=== PATIENT | male | born 1965 | race Caucasian/White ===

== ENCOUNTER → 2019-06-09 16:02 | Outpatient (CLI) | payer BC, SELFPAY ==
--- NOTE | 2019-06-09 16:15 | MRI_ITS ---
STUDY: MRI LUMBAR SPINE WITHOUT CONTRAST REASON FOR EXAM: Male, 53 years old. Bilateral radiculopathy greater on the left TECHNIQUE: Standardized fat and water weighted pulse sequences were obtained in the sagittal and axial planes. COMPARISON: None FINDINGS: T12-L1: Normal endplates. Normal disc height, hydration and tiny central disc protrusion.. Normal bilateral facet joints. Normal central canal and bilateral lateral recesses. Normal bilateral intervertebral neural foramina. Mild lumbar kyphosis. There is no substantial scoliosis. Normal conus medullaris that terminates at L1 L1-2: Normal endplates. Normal disc height, desiccation and moderate annular bulge with small central disc protrusion... Normal bilateral facet joints. Mild narrowing the central canal. Normal bilateral recesses and neural foramina. L2-3: Normal endplates. Normal disc height, desiccation and mild annular bulge in association with central disc protrusion.. Normal bilateral facet joints. Mild narrowing of the central canal. Normal bilateral recesses. Normal bilateral intervertebral neural foramina. L3-4: Grade 1 retrolisthesis. minor endplate spurring. Normal disc height, desiccation and minor bulging disc osteophyte complex. Mild facet arthropathy.. Normal central canal and bilateral lateral recesses. Mild bilateral neural foraminal encroachment L4-5: Grade 1 retrolisthesis . minor endplate spurring. Normal disc height, desiccation and mild bulging disc osteophyte complex.. Bilateral facet arthropathy.. Normal central canal and bilateral lateral recesses. Moderate bilateral neuroforaminal stenosis exaggerated by shortened pedicles L5-S1: Mild endplate spurring Grade 1 retrolisthesis Normal disc height, desiccation and prominent bulging of the annulus in association with moderate-sized broad-based left paracentral/posterolateral disc protrusion displacing the descending left S1 nerve root.. Bilateral facet arthropathy.. Normal central canal. Moderate left lateral recess stenosis. Severe bilateral neuroforaminal stenosis exaggerated by shortened pedicles Normal visualized sacral ala. Normal visualized paraspinous soft tissue structures. MRI/Spine Lumbar (Routine) IMPRESSION: No evidence for acute fracture or subluxation. Spondylosis and multilevel spinal stenosis secondary to disc disease and bony hypertrophy most severe at L5-S1 greater on the left. Findings as above Electronically Signed: Vic Gracia MD at 17:36 EDT , Service support ,
== END ==
PROVIDERS: Family Provider Family Medicine; PCP Family Medicine; Referring Provider Family Medicine; Visit Provider Family Medicine
DX: M54.16 Radiculopathy, lumbar region (principal)
CPT/HCPCS: 72148

== ENCOUNTER → 2020-08-02 07:18 | Outpatient (CLI) | payer BC, SELFPAY ==
--- NOTE | 2020-08-02 07:24 | MRI_ITS ---
STUDY: MRI LUMBAR SPINE WITH AND WITHOUT CONTRAST REASON FOR EXAM: Male, 54 years old. spinal stenosis, radiculopathy, s/p surgery L5S1, left buttock pain, left leg pain TECHNIQUE: Standardized fat and water weighted pulse sequences were obtained in the sagittal and axial planes. IV Dotarem 17ml was administered for the contrast portion of the examination. COMPARISON: 06/09/2019 FINDINGS: T12-L1: Normal endplates. Normal disc height, hydration and morphology. Normal bilateral facet joints. Normal central canal and bilateral lateral recesses. Normal bilateral intervertebral neural foramina. There is reversal of the normal lumbar lordosis. There is no substantial scoliosis. Normal conus medullaris that terminates at the L1/L2 L1-2: No change in the mild broad disc protrusion which produces mild spinal stenosis but no neural foraminal stenosis. L2-3: No change in the focal kyphosis and moderate broad disc protrusion which produces a moderate spinal stenosis with moderate bilateral lateral recess stenosis with abutment of the L3 nerve roots bilaterally and mild bilateral neural foraminal stenosis. L3-4: No change in the mild bilobed disc protrusion which produces mild spinal stenosis and mild bilateral neural foraminal stenosis. L4-5: No change in the 2 mm retrolisthesis of L4 and L5 and the mild bilobed disc protrusion which produces moderate spinal stenosis with moderate bilateral recess stenosis with abutment of the L5 nerve roots bilaterally and mild bilateral neural foraminal stenosis. L5-S1: Interval left laminotomy with resection of the previously described left paracentral disc protrusion without recurrence. No change in the 2 mm retrolisthesis of L5 on S1 with a mild broad disc protrusion which produces mild spinal stenosis but severe bilateral neural foraminal stenosis with effacement of the exiting L5 nerve roots bilaterally. Normal visualized sacral ala. Normal visualized paraspinous soft tissue structures. There is no demonstrated abnormal enhancement. MRI/Spine Lumbar W/WO Contrast IMPRESSION: Postsurgical changes and degenerative disc disease as described above. Electronically Signed: Daniel Schulte MD at 8:57 EDT Tel , Service support ,
== END ==
PROVIDERS: PCP Family Medicine
DX: M48.061 Spinal stenosis, lumbar region without neurogenic claudication (principal); M54.16 Radiculopathy, lumbar region
CPT/HCPCS: 72158; A9575

== ENCOUNTER → 2021-10-29 16:05 | Outpatient (CLI) | payer BC, SELFPAY ==
--- NOTE | 2021-10-29 16:16 | MRI_ITS ---
STUDY: MR Spine Lumbar WO/W Contrast 10/29/2021 9:27 PM REASON FOR EXAM: Male, 56 years old. Back pain DISC HERNIATION, RADICULOPATHY, STENOSIS TECHNIQUE: MR Spine Lumbar WO/W Contrast Standardized fat and water weighted pulse sequences were obtained. WO/W IV 19ML DOTAREM Comparison: 08.02.2020 FINDINGS: T12-L1: Loss of intervertebral disc height. There is endplate spondylosis of the vertebral body. Normal central canal and intervertebral neuroforamina. There is bilateral facet arthropathy. Normal lumbar lordosis. There is no substantial scoliosis. Normal conus medullaris that terminates at the L1. L1-2: Loss of intervertebral disc height. There is endplate spondylosis of the vertebral body. Normal central canal and intervertebral neuroforamina. There is bilateral facet arthropathy. Central disc herniation. No spinal stenosis. L2-3: Loss of intervertebral disc height. There is endplate spondylosis of the vertebral body. Normal central canal and intervertebral neuroforamina. There is bilateral facet arthropathy. Central disc herniation. No spinal stenosis. L3-4: Loss of intervertebral disc height. There is endplate spondylosis of the vertebral body. There is bilateral ligamentum flavum thickening. . There is bilateral facet arthropathy. L4-5: Loss of intervertebral disc height. There is endplate spondylosis of the vertebral body. There is bilateral facet arthropathy. Bilateral neural foraminal stenosis. Compression of exiting nerve roots. There is an extruded disc. The disc extends along the L4 vertebral body. Mild significant spinal stenosis. Impression upon anterior thecal sac.Stable grade 1 retrolisthesis. L5-S1: Loss of intervertebral disc height. There is endplate spondylosis of the vertebral body. There is bilateral facet arthropathy. Bilateral neural foraminal stenosis. Compression of exiting nerve roots. No significant spinal stenosis. Left hemilaminectomy changes. Stable grade 1 retrolisthesis. Normal visualized sacral ala. Normal visualized paraspinous soft tissue structures. MRI/Spine Lumbar W/WO Contrast IMPRESSION: Multilevel degenerative changes, as described above. Most significant finding is a large disc extrusion at L4-5. Small central disc herniation at L1-2 and L2-3. Electronically Signed: Ortiz Cadet MD at 21:32 EST , Service support ,
== END ==
PROVIDERS: PCP Family Medicine
DX: M51.26 Other intervertebral disc displacement, lumbar region (principal); M54.17 Radiculopathy, lumbosacral region; M48.07 Spinal stenosis, lumbosacral region
CPT/HCPCS: 72158; A9575

== ENCOUNTER → 2025-02-08 | Outpatient (CLI) | payer BC, SELFPAY ==
--- NOTE | 2025-02-08 18:00 | RAD_ITS ---
PROCEDURE: LUMBAR SPINE 2 OR 3 VIEWS 02/08/2025 REASON FOR EXAM: POSTLAMINECTOMY SYNDROME TECHNIQUE: 3 view(s) of the lumbar spine COMPARISON: None available FINDINGS: Vertebrae: Vertebral body heights are well preserved. Discs: There is loss of intervertebral disc height most prominent at L5-S1 with associated facet arthropathy at L5-S1. Alignment: Reversal of the normal lordosis of the lumbar spine. Other: None RAD/Lumbar Spine 2 or 3 Views IMPRESSION: Multilevel degenerative changes throughout the lumbar spine. No acute fracture or traumatic malalignment. Reading Location: [id number]
== END | disposition home or self-care (01) ==
PROVIDERS: PCP Family Medicine; Referring Provider Anesthesiology Pain Medicine; Visit Provider Anesthesiology Pain Medicine
DX: M96.1 Postlaminectomy syndrome, not elsewhere classified (principal)
CPT/HCPCS: 72100

== ENCOUNTER → 2025-03-29 | Outpatient (CLI) | payer BC, SELFPAY ==
--- NOTE | 2025-03-29 11:10 | MRI_ITS ---
PROCEDURE: SPINE LUMBAR (ROUTINE) 03/29/2025 REASON FOR EXAM: RADICULOPATHY TECHNIQUE: Multiplanar and multisequence images were obtained without IV contrast administration. COMPARISON: February 08, 2025 x-ray, 06/21/2021 MRI FINDINGS: There is grade 1 retrolisthesis at L at L2-3, 0.3 cm. There is grade 1 retrolisthesis at L3-4, 0.3 cm. There is grade 1 retrolisthesis at L4-5, 0.5 cm. The vertebral body height is maintained. There is Modic edema type endplate change at L4-5. Intervertebral disc signal shows desiccation. The facet articulations are aligned. The L1-L2 level: There is disc extrusion which extends beyond the L2 endplate and into the right lateral recess, attached at the margin, measuring 0.3 x 0.8 by 1.0 cm. There is mild right lateral recess effacement. There is no significant foraminal narrowing or central canal stenosis. The L2-L3 level: There is central disc extrusion which extends beyond the L3 endplate, attached at the margin, measuring 0.6 by 0.9 by 1.1 cm. There is mild left lateral recess effacement. There is mild bilateral foraminal narrowing secondary to disc protrusion and facet hypertrophy. There is mild central canal stenosis. The L3-L4 level: There is mild central and right and left paracentral disc protrusion. There is mild bilateral lateral recess stenosis. There is moderate right and mild left foraminal narrowing secondary to disc protrusion and facet hypertrophy. There is no central canal stenosis. The L4-L5 level: There is disc extrusion which extends beyond the L5 endplate and into the left lateral recess, attached at the margin, measuring 0.4 by 0.7 by 0.7 cm. There is severe bilateral lateral recess stenosis. There is moderate right and severe left foraminal narrowing secondary to disc protrusion and facet hypertrophy. There is mild central canal stenosis, partly secondary to ligamentous hypertrophy. The L5-S1 level: There is moderate central and right and left paracentral disc and osteophyte protrusion. There is moderate bilateral lateral recess stenosis. There is moderate bilateral foraminal narrowing secondary to disc protrusion and facet hypertrophy. There is no central canal stenosis. The visualized conus shows normal signal characteristics. Adjacent soft tissues are unremarkable. MRI/Spine Lumbar (Routine) IMPRESSION: There is grade 1 retrolisthesis at L at L2-3, 0.3 cm. There is grade 1 retrolis thesis at L3-4, 0.3 cm. There is grade 1 retrolisthesis at L4-5, 0.5 cm. There is Modic edema type endplate change at L4-5. There is disc extrusion at L2-3, and L 4-5. There is mild central canal stenosis at L4-5, with lateral recess and foraminal narrowing. Reading Location: [facility]
== END | disposition home or self-care (01) ==
LOC: OPMRI 10:54
PROVIDERS: PCP Family Medicine; Referring Provider Anesthesiology Pain Medicine; Visit Provider Anesthesiology Pain Medicine
DX: M96.1 Postlaminectomy syndrome, not elsewhere classified (principal)
CPT/HCPCS: 72148

== ENCOUNTER → 2025-10-19 | Outpatient (CLI) | payer BC, SELFPAY ==
--- NOTE | 2025-10-19 11:31 | MRI_ITS ---
PROCEDURE: SPINE LUMBAR W/WO CONTRAST 10/19/2025 REASON FOR EXAM: Clinical history of spinal stenosis TECHNIQUE: Procedure Code: [id number] Modality: MR Procedure: SPINE LUMBAR W/WO CONTRAST Multiplanar and multisequence images were obtained without and with intravenous gadolinium-based contrast administration. CONTRAST: Clariscan VOLUME: 18 mL COMPARISON: MRI lumbar spine 03/29/2025 FINDINGS: For the purposes of this report, the most caudal rectangular vertebral body will be designated L5. The next most caudal trapezoidal shaped vertebral body will be designated S1. The intervening disc at the lumbosacral angle is designated L5-S1. Post left L5 hemilaminectomy. There is a fluid collection in the region of the left L5 hemilaminectomy adjacent to the facet joint. This fluid collection measures approximately 1.5 x 0.8 x 1.1 cm. There is no communication to the spinal canal. There is surrounding soft tissue edema. The normal lumbar lordosis is maintained. The lumbar vertebral bodies are normal in height. Grade 1 L2-L3, L3-L4, and L5-S1 anterolisthesis. There is no evidence of signal abnormality in the imaged distal spinal cord or abnormal enhancement within the lumbar spinal canal. The conus medullaris terminates at the level of L1. T12-L1: No significant spinal canal stenosis or neural foraminal narrowing. L1-L2: Disc bulge flattens the ventral thecal sac. No significant neural foraminal narrowing. L2-L3: Disc bulge with superimposed central disc extrusion contributes to mild spinal canal stenosis. [id number] right right neural foraminal narrowing predominantly secondary to disc bulge. No significant left neural foraminal narrowing. L3-L4: Disc bulge, bilateral facet arthrosis, and ligamentum flavum hypertrophy. No significant spinal canal stenosis. [id number] right and mild left neural foraminal narrowing. L4-L5: Disc bulge, bilateral facet arthrosis, and ligamentum flavum hypertrophy. Mild spinal canal stenosis and subarticular zone narrowing. Moderate right and severe left neural foraminal narrowing. Type 1 Modic endplate changes. L5-S1: Posterior disc osteophyte complex. No significant spinal canal stenosis. Moderate right neural foraminal narrowing predominantly secondary to disc bulge and facet arthropathy. Mildly limited evaluation of the left neural foramen secondary to surrounding inflammatory changes. There appears to have been decompression of the left neural foramen. MRI/Spine Lumbar W/WO Contrast IMPRESSION: Post left L5 hemilaminectomy. Fluid collection at the hemilaminectomy bed desirae uring 1.5 x 0.8 x 1.1 cm with surrounding inflammatory changes. Infectious etiology is not excluded. Reading Location: [id number]
== END | disposition home or self-care (01) ==
LOC: MRI 11:18
PROVIDERS: PCP Family Medicine
DX: M48.062 Spinal stenosis, lumbar region with neurogenic claudication (principal)
CPT/HCPCS: 72158; A9575